=== PATIENT | female | born 2000 | race Caucasian/White ===

== ENCOUNTER 2020-01-09 20:33 | Emergency (ER) | payer BC, SELFPAY ==
[~2020-01-09] VITALS: Ht 154.9 cm; Wt 69.7 kg
[2020-01-09 20:34] VITALS: BP 129/80
[2020-01-09] MEDS ORDERED: PYRI1TAB5 PO (21:27)
[2020-01-09] MEDS ORDERED: MACR100C43 PO (21:27)
[2020-01-09] MEDS ORDERED: NITROFURANTOIN (MACROBID) 100 MG CAP PO ONE (21:30)
[2020-01-09] MEDS ORDERED: PHENAZOPYRIDINE 100 MG TAB PO ONE (21:30)
== END 2020-01-09 21:36 | disposition home or self-care (01) ==
LOC: M ED 20:33
DX: N39.0 Urinary tract infection, site not specified (principal); F17.210 Nicotine dependence, cigarettes, uncomplicated; Z79.3 Long term (current) use of hormonal contraceptives

== ENCOUNTER 2020-12-16 13:57 | Emergency (ER) | payer OTHER, SELFPAY ==
[~2020-12-16] VITALS: Ht 157.5 cm; Wt 68.2 kg
[2020-12-16 13:57] VITALS: BP 148/65
[~2020-12-16 13:57] MED LIST: MACR100C43 PO; PYRI1TAB5 PO
--- NOTE | 2020-12-16 14:26 | REP ---
INDICATION: r/o foriegn body COMPARISON: None. TECHNIQUE: AP and lateral views of the left foot. FINDINGS: BB marker has been placed at site of concern. The osseous structures are intact and without acute fracture or dislocation. Joint spaces are normal. No subcutaneous emphysema or foreign body identified. IMPRESSION: No foreign body. <Electronically signed by Sterling Jones > 12/16/20 [id number]
[2020-12-16] MEDS ORDERED: CEPH500T PO (14:39)
[2020-12-16] MEDS ORDERED: NEOSPORIN OINT 0.9 GM PKT TOP ONE (14:55)
== END 2020-12-16 15:02 | disposition home or self-care (01) ==
LOC: M ED 13:57
DX: S91.312A Laceration without foreign body, left foot, initial encounter (principal); W26.8XXA Contact with other sharp object(s), not elsewhere classified, initial encounter; Y92.9 Unspecified place or not applicable; Y93.9 Activity, unspecified; Y99.9 Unspecified external cause status

== ENCOUNTER 2021-01-27 11:08 | Emergency (ER) | payer OTHER ==
[~2021-01-27] VITALS: Ht 157.5 cm; Wt 68.2 kg
[~2021-01-27 11:08] MED LIST changes: +CEPH500T PO
[2021-01-27] MEDS ORDERED: ACETAMINOPHEN 325 MG TAB PO ONE (13:30)
[2021-01-27 14:34] VITALS: BP 121/71
--- NOTE | 2021-01-28 08:12 | REP ---
INDICATION: trauma COMPARISON: 12/16/2020 TECHNIQUE: AP, lateral, bilateral oblique views left foot. FINDINGS: There is a transverse fracture 5th toe proximal phalanx with overlying soft tissue swelling. Remainder of the examination appears normal. IMPRESSION: Fracture at the 5th toe proximal phalanx.. <Electronically signed by Sterling Jones > 01/28/21 [id number]
== END 2021-01-27 14:34 | disposition home or self-care (01) ==
LOC: M ED 11:08
DX: S92.515A Nondisplaced fracture of proximal phalanx of left lesser toe(s), initial encounter for closed fracture (principal); W22.09XA Striking against other stationary object, initial encounter; Y92.9 Unspecified place or not applicable; Y93.9 Activity, unspecified; Y99.9 Unspecified external cause status

== ENCOUNTER 2021-02-18 14:00 | Emergency (ER) | payer OTHER ==
[~2021-02-18] VITALS: Ht 157.5 cm; Wt 69.7 kg
[2021-02-18] MEDS ORDERED: PREN29CH2 PO (14:17)
[2021-02-18] MEDS ORDERED: IRON15CH PO (14:17)
[2021-02-18] MEDS ORDERED: ACET-683 PO (14:18)
[2021-02-18 17:20] VITALS: BP 133/86
== END 2021-02-18 17:43 | disposition home or self-care (01) ==
LOC: M ED 14:00
DX: G43.909 Migraine, unspecified, not intractable, without status migrainosus (principal)

== ENCOUNTER 2021-04-03 14:47 | Emergency (ER) | payer OTHER ==
[~2021-04-03] VITALS: Ht 157.5 cm; Wt 70.6 kg
[~2021-04-03 14:47] MED LIST changes: +ACET-683 PO; +IRON15CH PO; +PREN29CH2 PO
[2021-04-03 14:52] VITALS: BP 124/76
[2021-04-03 19:50] LABS: BASO % 0.1 % (0.0-1.0); EOS % 0.5 % (0.0-3.0); HEMOGLOBIN 12.9 g/dl (12.0-15.5); LYMPH # 1.9 10^3/uL (1.5-5.0); LYMPH % 22.3 % (24.0-44.0); MEAN CORPUSCULAR HEMOGLOBIN 29.5 pg (27.0-33.0); MEAN CORPUSCULAR HGB CONC 33.1 g/dl (32.0-36.5); MEAN CORPUSCULAR VOLUME 89.2 fl (80.0-96.0); MONO # 0.8 10^3/uL (0.0-0.8); MONO % 9.3 % (2.0-8.0); NEUTROPHILS # 5.8 10^3/uL (1.5-8.5); NEUTROPHILS % 67.5 % (36.0-66.0); PLATELET COUNT, AUTOMATED 223 10^3/uL (150-450); RED BLOOD COUNT 4.37 10^6/uL (4.00-5.40); WHITE BLOOD COUNT 8.6 10^3/uL (4.0-10.0)
--- NOTE | 2021-04-03 19:58 | REP ---
INDICATION: lump r armpit. COMPARISON: None. TECHNIQUE: Targeted right axillary sonography. FINDINGS: Soft tissue sonography in the area of interest in the right axilla demonstrates normal subcutaneous tissues. No mass, adenopathy, cyst or abnormal fluid collection seen. IMPRESSION: Negative right axillary sonography. <Electronically signed by Tejinder Treviño > 04/03/211953
[2021-04-03 21:43] LABS: ERYTHROCYTE SEDIMENTATION RATE 49 mm/hr (0-20)
== END 2021-04-03 21:10 | disposition home or self-care (01) ==
LOC: M ED 14:47
DX: O99.712 Diseases of the skin and subcutaneous tissue complicating pregnancy, second trimester (principal); R22.31 Localized swelling, mass and lump, right upper limb; Z3A.22 22 weeks gestation of pregnancy

== ENCOUNTER 2021-04-10 19:26 | Emergency (ER) | payer OTHER ==
[~2021-04-10] VITALS: Ht 157.5 cm; Wt 70.8 kg
[2021-04-10 19:29] VITALS: BP 130/76
== END 2021-04-10 20:47 | disposition left against medical advice (07) ==
LOC: M ED 19:26
DX: Z53.21 Procedure and treatment not carried out due to patient leaving prior to being seen by health care provider (principal)

== ENCOUNTER 2021-07-13 23:28 | Outpatient (CLI) | payer OTHER ==
[~2021-07-13] VITALS: Ht 157.5 cm; Wt 76.9 kg
[2021-07-13 23:45] VITALS: BP 139/90
[2021-07-14] MEDS ORDERED: FLUCONAZOLE 50MG TABLET PO ONE (00:30)
[2021-07-14] MEDS ORDERED: FLUCONAZOLE 100 MG TAB PO ONE (00:30)
--- NOTE | 2021-07-14 00:41 | IPNPDOC ---
Text Note Date of Service The patient was seen on 07/14/21. NOTE S: 20yo duke [id number], presents to triage for c/o tightening, spotting, and questionable LOF with thin discharge. States reasurring FM. Upon questioning, pt states that symptoms started after intercourse within the hour. O: VSS RNST, fhr 125, mod variability, +accel, -decel, uterine irritability noted Speculum exam with thick adherent blood tinged discharge noted. Neg pooling. Samples collected for ferning neg. AKANKSHA/WP completed, -clue, -trich, +hyphae. A: vaginal candidiasis [id number] P: 150mg Diflucan PO x1 Discharge to home with PTL precautions FKC reviewed Understanding of reasons to return for care VS,Fishbone, I+O VS, Fishbone, I+O Vital Signs Date Time Temp Pulse Resp B/P (MAP) Pulse Ox O2 Delivery O2 Flow Rate FiO2 07/13/21 23:45 92 139/90 (106) 07/13/21 23:45 96.9 18 NICK CALI CNM Jul 14, 2021 00:41
[2021-07-14 00:46] VITALS: BP 136/86
== END 2021-07-14 00:29 | disposition home or self-care (01) ==
LOC: M LDO 23:28
PROVIDERS: ATTEND Registered Nurse
DX: O26.853 Spotting complicating pregnancy, third trimester (principal); O26.893 Other specified pregnancy related conditions, third trimester; B37.3 Candidiasis of vulva and vagina; Z3A.35 35 weeks gestation of pregnancy
CPT/HCPCS: 59025; G0378; G0463

== ENCOUNTER 2021-07-31 07:23 | Inpatient (IN) | payer OTHER ==
[~2021-07-31] VITALS: Ht 157.5 cm; Wt 75.0 kg
[2021-07-31] VITALS (16 sets, daily range): BP systolic 119–158; BP diastolic 65–110
[2021-07-31] MEDS ORDERED: OXYTOCIN DRIP 30 UNITS in IV 1 EA IV PRN (08:35)
[2021-07-31] MEDS ORDERED: LIDOCAINE 1% MDV 20ML VIAL INFIL PRN (08:35)
[2021-07-31] MEDS ORDERED: LR 1,000 ML IV SCH (08:35)
[2021-07-31] MEDS ORDERED: LACTATED RINGER'S 1000 ML IV STA (08:35)
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
--- NOTE | 2021-07-31 10:01 | IPNPDOC ---
Obstetrical Progress Note Date of Service Jul 31, 2021 Subjective C/o pressure and urge to push, assisted out of the tub to return to hands and knees on the bed. Tocometer Contractions: Yes Frequency: regular, every 2-2 min. Duration: less than 90 seconds Strength: palpated as strong, resting tone palp/soft Sterile Vaginal Examination Dilation: 8 cm Effacement (%): 100% Station: 0 Cervical Consistency: Soft Cervical Position: Posterior Postion/Presentation: Cephalic presentation Assessment and Plan Age: 20 : 1 Term: 0 Pre-term: 0 Abortions: 0 Livin EGA at Admission: 38 (+1) Group B Streptococcus: Negative Anticipate: Vaginal Delivery Additional Comments saline lock iv, intermittent auscultation per protocol, monitor for change in or maternal status, anticipate vaginal delivery NICK CALI CNM Jul 31, 2021 10:01
[2021-07-31 10:13] LABS: HEMATOCRIT 36.7 % (36.0-47.0); HEMOGLOBIN 12.1 g/dl (12.0-15.5); MEAN CORPUSCULAR HEMOGLOBIN 27.9 pg (27.0-33.0); MEAN CORPUSCULAR VOLUME 84.8 fl (80.0-96.0); PLATELET COUNT, AUTOMATED 253 10^3/uL (150-450); RED BLOOD COUNT 4.33 10^6/uL (4.00-5.40); WHITE BLOOD COUNT 7.6 10^3/uL (4.0-10.0)
[2021-07-31 10:25] LABS: ALT/SGPT 31 U/L (12-78); BILIRUBIN,TOTAL 0.5 MG/DL (0.2-1.0); CREATININE FOR GFR 0.74 MG/DL (0.55-1.30); LDH LACTATE DEHYDROGENASE 255 U/L (84-246); URIC ACID 4.8 MG/DL (2.6-6.0)
[2021-07-31] MEDS ORDERED: BUTORPHANOL 2 MG/ML INJ (J0595) As Ordered ONE (10:49)
[2021-07-31] MEDS ORDERED: BUTORPHANOL 2 MG/ML INJ (J0595) IV ONE (11:00)
[2021-07-31] MEDS ORDERED: LIDOCAINE 1% MDV 20ML VIAL As Ordered ONE (11:13)
[2021-07-31] MEDS ORDERED: LIDOCAINE 1% MDV 20ML VIAL IM ONE (11:20)
[2021-07-31] MEDS ORDERED: LIDOCAINE 1% MDV 20ML VIAL INFIL ONE (11:45)
[2021-07-31] MEDS ORDERED: METHYLERGONOVINE MALEATE 0.2 MG TAB PO PRN (11:45)
[2021-07-31] MEDS ORDERED: MEASLES,MUMPS,RUBELLA VACCINE INJ (MMR-II) (90707) SC SCH (11:45)
[2021-07-31] MEDS ORDERED: DOCUSATE SODIUM 100MG CAPSULE PO PRN (11:45)
[2021-07-31] MEDS ORDERED: RHOGAM 300 MCG (1500 IU) INJ (J2790) IM SCH (11:45)
[2021-07-31] MEDS ORDERED: DIBUCAINE 1% OINTMENT 30GM TOP PRN (11:45)
--- NOTE | 2021-07-31 12:10 | DNPDOC ---
[facility] Delivery Note Delivery Note DATE OF DELIVERY: 31Jul2021 PREDELIVERY DIAGNOSIS: 38-1/7 weeks' gestation and labor. POST DELIVERY DIAGNOSIS: Delivered. PROCEDURE: Spontaneous vaginal delivery. PEST CONTROL WORKER: Ana Laura Cali CNM ANESTHESIA: none. ESTIMATED BLOOD LOSS: 400 mL. FINDINGS: 7 pound 12 ounce male infant, Score 9/9, nuchal cord times 1. DELIVERY SUMMARY: Patient is a 20-year-old 1 now para 1 who was admitted to labor and delivery for active labor, SROM at 0640 on 31Jul2021. Made brisk progress in labor and called out with a continuous urge to push. Pt was ass isted to return to the bed in hands and knees and found to be C/C/+2. Payton was coached to push with contractions to in OA with restitution to GONZALES. A loose nuchal cord was noted after delivery of the head. The right anterior shoulder delivered easily followed by the posterior shoulder and corpus. The was passed through the mothers legs where he was dried and stimulated to cry. Payton was assisted to hold the infant and rotate to a supine position. The cord was clamped x2 after pulsation ceased and cut by the FOB. Pitocin infusion initiated per protocol. The placenta delivered spontaneously intact in Boothe presentation with small bleeding. The Fundus was massaged until firm and large clots palpated at the cervix. The patient was unable to tolerate a sweep of the cervix and fundal massage was continued while 2mg stadol IV was administered. The cervix was then swept for several clots and the uterus massaged until firm. 1000mg cytotec was placed SD. Examination revealed a second degree laceration. Local lidocaine was injected for analgesia. The laceration was repaired using 3-[address] with the Bc method. The cervix was swept for several additional small clots and the fundus massaged, deviated to the right with urine noted. A straight catheter was ordered and the bladder emptied for an additional 175ml urine. The fundus firmed at U-2. Mother and baby entered the recovery phase in stable condition, skin to skin with initiated. ANA LAURA CALI CNM Jul 31, 2021 12:10
[2021-07-31] MEDS: IBUPROFEN 800 MG TAB PO PRN (14:17)
[2021-07-31] MEDS: ACETAMINOPHEN TAB 650MG DOSE (2X325MG) PO PRN (20:33)
[2021-08-01 06:00] VITALS: BP 136/89
--- NOTE | 2021-08-01 06:47 | IPNPDOC ---
Progress Note Date of Service: Aug 01, 2021 Day#: 1 Progress Note SUBJECT:Payton is a 20 yo PPD1 S/P at 38w1d of a 7 pound 12 ounce male infant, Score 9/9, nuchal cord times 1. she is doing well this morning. She has been ambulating, voiding spontaneously without issue and tolerating regular diet. Breast feeding without issue. Reports lochia is minimal. OBJECTIVE: VITAL SIGNS: Within normal limits, afebrile. Alert and oriented times three. normal work of breathing. Heart rate: Regular rate and rhythm,. Abdomen: Fundus firm at U-2. Soft, NTTP. ASSESSMENT:Payton is a 20 yo PPD1 S/P at 38w1d of a 7 pound 12 ounce male , Score 9/9, nuchal cord times 1. Vitals within normal limits, afebrile, hemodynamically stable with no evidence of infection, pre e or anemia. PLAN: 1. Discharge to home tomorrow 2. Tylenol and Motrin for pain. 3. Encourage breast feeding and ambulation. 4. condoms for contraception 5. Routine PP visit in 6 weeks in clinic. 6. Discussed return precautions at length. VS, I&O, 24H, Fishbone Vital Signs/I&O Vital Signs Date Time Temp Pulse Resp B/P (MAP) Pulse Ox O2 Delivery O2 Flow Rate FiO2 08/01/21 06:00 97.9 61 20 136/89 (105) 97 Room Air I&O- Last 24 Hours up to 6 AM 08/01/21 06:00 Intake Total 860 ml Output Total 1400 ml Balance -540 ml Laboratory Data 24H LABS Laboratory Tests 2 07/31/21 08:31: Serology Scanned Report Hepatitis B Testing 07/31/21 09:50: Nucleated Red Blood Cells % (auto) 0.0, Uric Acid 4.8, Total Bilirubin 0.5, Aspartate Amino Transf (AST/SGOT) 25, Alanine Aminotransferase (ALT/SGPT) 31, Lactate Dehydrogenase 255H, Syphilis Serology NONREACTIVE, Coronavirus (COVID- 19)(PCR) NEGATIVE CBC/BMP Laboratory Tests 07/31/21 09:50 SAPNA MOONEY MD Aug 01, 2021 06:47
[2021-08-01] MEDS: PRENATAL VITAMINS CHEWABLE TABLET PO SCH (07:46)
[2021-08-01] MEDS: IBUPROFEN 800 MG TAB PO PRN (07:47)
[2021-08-01 18:00] VITALS: BP 125/75
[2021-08-02] MEDS: IBUPROFEN 800 MG TAB PO PRN (04:01)
[2021-08-02 06:00] VITALS: BP 126/81
--- NOTE | 2021-08-02 06:53 | IPNPDOC ---
Progress Note Date of Service: Aug 02, 2021 Day#: 2 Progress Note Ms. Koch is a 20 yo on post day 1 after at 38+1 wks gest ation. S: States she is doing well. Reports pain well controlled. She is ambulating well, tolerating a regular diet, urinating without difficulty, reports normal bowel activities and has no breast or leg pain. States is going well. Some difficulty with latch on one side due to inverted nipple. Is using breast shield with improvement. Lochia is diminishing. Denies dizziness, lightheadedness. O: General: Alert. Well-appearing, in no acute distress. Tired with appropriate responses. PSYCH: Well groomed. Appropriate affect, normal mood. Conversed easily. Neuro: Oriented to time, place, and person. RESP: Lungs clear to auscultation bilaterally without wheezes, rales or rhonchi. Unlabored breathing. CV: Normal RRR, no murmur, c/w normal . No edema to bilateral upper and lower extremities. Negative calf tenderness. Breast: Soft, filling. No erythema or tenderness. Intact nipples. ABD: Soft, non-tender. BS normal x4 quad. Fundus: Firm U-2, Fundus non-tender. MSK: legs without calf tenderness or edema bilaterally SKIN: Dry, intact. A/P 20yo G 1 P 1 day 1 s/p at 38+1 wks gestation O Negative- still needs Rhogam prior to discharge GBS negative/RI VNI-will need vaccine Normal progression well with some latch difficulties. Working with nursing staff. Discussed follow up support after discharge VSS Plans condoms for control after discharge. Discharge today when infant ready, to follow up in [facility] clinic in 6-8wks for PP visit. Discharge teaching completed with patient, see discharge summary. VS, I&O, 24H, Fishbone Vital Signs/I&O Vital Signs Date Time Temp Pulse Resp B/P (MAP) Pulse Ox O2 Delivery O2 Flow Rate FiO2 08/02/21 06:00 97.8 70 18 126/81 (96) 100 Room Air PREM FINNEY CNM Aug 02, 2021 06:53
--- NOTE | 2021-08-02 06:56 | DS.PDOC ---
Discharge Summary General Date of Admission Jul 31, 2021 at 08:27 Date of Discharge Aug 02, 2021 Discharge Summary Date of Admission: 07/31/21 Admission Diagnosis: SROM at Full Term Delivery Date:07/31/21 Discharge Diagnosis: Normal spontaneous vaginal delivery, term up to 40 weeks gestation Brady gestation, live Second Degree Perineal Laceration, Repaired Procedures: External Monitoring Vaginal Delivery Repair of Laceration Condition on Discharge: Stable Discharged to: Home Hospital Course: Ms. Koch is a 20 year old G1 now P1 who delivered a viable infant male at 38+1 weeks gestation via spontaneous vaginal delivery after arriving to unit with ruptured membranes. A second degree laceration was repaired following delivery. Ms. Koch has had an uncomplicated course. She has remained afebrile and normotensive with diminishing lochia throughout her stay. She is ambulating well, tolerating a regular diet, urinating without difficulty, reports normal bowel activities and has no breast or leg pain. She is stable and ready for discharge. Day of discharge physical exam documented in progress note. feeding at discharge is breastmilk. Planned control is condoms. To follow up in the [facility] in 6-8 weeks. Discharge management time Spent: <30 minutes I saw and evaluated the patient, and completed the documentation personally. -LTC Maria M Finney CNM Vital Signs/I&Os Vital Signs Date Time Temp Pulse Resp B/P (MAP) Pulse Ox O2 Delivery O2 Flow Rate FiO2 08/02/21 06:00 97.8 70 18 126/81 (96) 100 Room Air Discharge Medications Scheduled Iron,Carbonyl (Iron Chews) 15 Mg Tab.chew, 1 TAB PO DAILY, (Reported) No115/Iron/Folic Acid ( 19 Chewable Tablet) 1 Each Tab.chew, 1 TAB PO DAILY, (Reported) Allergies Coded Allergies: No Known Allergies (Unverified , 01/09/20) MARIA M FINNEY CNM Aug 02, 2021 06:53
[2021-08-02] MEDS: PRENATAL VITAMINS CHEWABLE TABLET PO SCH (08:00)
[2021-08-02] MEDS: ACETAMINOPHEN TAB 650MG DOSE (2X325MG) PO PRN (14:50)
== END 2021-08-02 15:00 | disposition home or self-care (01) | DRG 807 ==
LOC: M LDO 07:23 → M LDI 08:27 → M OBS 14:55
PROVIDERS: ADMIT Registered Nurse; ATTEND Registered Nurse
PROC: 10E0XZZ Delivery of Products of Conception, External Approach (ICD-10-PCS; principal; 2021-07-31)
PROC: 0KQM0ZZ Repair Perineum Muscle, Open Approach (ICD-10-PCS; 2021-07-31)
DX: O69.81X0 Labor and delivery complicated by cord around neck, without compression, not applicable or unspecified (principal); Z37.0 Single live birth; Z3A.38 38 weeks gestation of pregnancy; O70.1 Second degree perineal laceration during delivery

== ENCOUNTER 2021-12-10 17:07 | Emergency (ER) | payer OTHER ==
[~2021-12-10] VITALS: Ht 157.5 cm; Wt 72.1 kg
[2021-12-10 17:08] VITALS: BP 124/68
[2021-12-10] MEDS ORDERED: DEPO150I12 IM (17:48)
== END 2021-12-10 19:50 | disposition left against medical advice (07) ==
LOC: M ED 17:07
DX: Z53.21 Procedure and treatment not carried out due to patient leaving prior to being seen by health care provider (principal)